=== PATIENT | male | born 1940 | race Hispanic/Latino ===

== ENCOUNTER 2018-02-13 01:08 | Emergency (ER) | payer MEDICARE ==
--- NOTE | 2018-02-13 01:13 | C.PDOC ---
History Of Present Illness medics were called because pt was unresponsive. Found in pea. Started cpr, intubated, received 1 amp epi with ROSC. Lost pulse in the ambulance and after cpr and another amp epi, ROSC. Received pt intubated and with good pulses. No evidence of trauma Time Seen by Provider: 02/13/18 01:12 History Per: EMS Reason For Code Blue: Full Arrest Circumstances: Brought To ED By EMS Arrest Witnessed By: No One CPR Initiated Prior To MD Arrival?: Yes Down-Time Before ACLS: Unknown (last seen at baseline around midnight) Treatment Initiated Prior To MD Arrival: Yes: CPR, Intubation, IVF, ACLS Medication Initiation, IV Access Medications Given Prior To MD Arrival: Yes: Epinephrine - Initial Findings Mentation: Unresponsive Respirations: None (Assisted) Pulse: None Rhythm: PEA Past Medical History Reviewed: Historical Data, Nursing Documentation, Vital Signs Vital Signs: Last Vital Signs Temp 96.3 F L 02/13/18 01:14 Pulse 0 L 02/13/18 03:04 Resp 18 02/13/18 02:52 BP 0/0 L 02/13/18 03:04 Pulse Ox 100 02/13/18 02:52 - Medical History PMH: Anemia, CHF, HTN, Chronic Kidney Disease Denies: Alzheimer's Disease, Anxiety, Arthritis, Asthma, Bipolar Disorder, Bronchitis, Cardia Arrhythmia, COPD, Crohn's Disease, Dementia, Depression, Diverticulitis, Emphysema, Fibromyalgia, Fractures, Gastrointestinal Ulcer, Gall Bladder Disease, HIV, Hypercholesterolemia, Hyperthyroidism, Hypothyroidism , Kidney Stones, Migraine, Mitral Valve Prolapse, Osteoporosis, Pancreatitis, Paranoia, Parkinson's Disease, Peripheral Edema, Pneumonia, Post Traumatic Stress Disorder, Schizophrenia, Seizures, Sickle Cell Disease, Sexually Transmitted Disease, Sleep Apnea, TIA Surgical History: Denies: Appendectomy, Cholecystectomy, Coronary Stent, Pacemaker - [facility] Procedures ANESTH INJECT-SPIN CANAL (12/12/03) DETACHMENT AT RIGHT UPPER LEG, LOW, OPEN APPROACH (10/22/17) DILATION OF R EXT ILIAC ART WITH INTRALUM DEV, PERC APPROACH (07/07/17) DILATION OF R FEM ART WITH DRUG-ELUT INTRA, PERC APPROACH (07/07/17) EXCISION OF RIGHT FOOT SKIN, EXTERNAL APPROACH (08/25/17) EXCISION OF SIGMOID COLON, ENDO, DIAGN (09/13/17) EXCISION OF STOMACH, ENDO, DIAGN (09/13/17) FLUOROSCOPY OF AORTA, BI LE ART USING OTH CONTRAST (07/07/17) FLUOROSCOPY OF RIGHT RENAL ARTERY USING OTHER CONTRAST (07/07/17) INJECT STEROID (12/12/03) OPEN REDUC-INT FIX FEMUR (09/06/12) OTHER LOCAL DESTRUC SKIN (06/10/97) SPINAL CANAL INJECT NEC (12/12/03) TRANSFUSE NONAUT RED BLOOD CELLS IN PERIPH VEIN, PERC (10/22/17) Family History: States: No Known Family Hx - Social History Hx Tobacco Use: Yes Hx Alcohol Use: No Hx Substance Use: No Review Of Systems Review Of Systems: ROS cannot be obtained secondary to pt's inabilty to answer questions. Physical Exam - Physical Exam Appears: In Acute Distress Skin: Pale Head: Normacephalic Eye(s): bilateral: Other (fixed) Oral Mucosa: Dry Lips: Other (dry) Throat: Other (intubated) Neck: Supple Chest: Symmetrical, Other (skin tear sternum) Cardiovascular: Rhythm Regular Respiratory: No Rales, Rhonchi, No Wheezing Gastrointestinal/Abdominal: Soft, No Tenderness, No Distention Back: Normal Inspection Extremity: Other (right BKA) Extremity: Left: No Pedal Edema Neurological/Psych: Other (unresponsivre, intubated) Gait: Unable To Assess ED Course And Treatment - Laboratory Results Result Diagrams: 02/13/18 01:24 02/13/18 01:24 ECG: Interpreted By Me, Viewed By Me ECG Rhythm: Sinus Rhythm (85), R BBB, ST/T Changes (lat ischmia), Nonspecific Changes (unchanged from 10/22/17) O2 Sat by Pulse Oximetry: 100 Pulse Ox Interpretation: Normal - Radiology CXR: Interpreted by Me, Viewed By Me Progress Note: see code sheet. repeat ekg 2:29 am afib 74 rbbb nsstt changes. spoke with dr diamond accepte the pt to icu. 3am attempted to put a central line in left femoral vein, but pt became asystolic. cpr initiated, 1 amp epi given. Pt pronounced at 3:12 AM Disposition Counseled Patient/Family Regarding: Studies Performed, Diagnosis - Disposition Referrals: Silvia Griggs MD [Primary Care Provider] - Disposition: WITH WITHOUT AUTOPSY Disposition Time: 01:13 Condition: - Clinical Impression Clinical Impression: Cardiac arrest Critical Care Time - Critical Care Note Total Time (in mins): 30 Documented critical care: time excludes all time spent performing seperately billable procedures.
[2018-02-13 01:14] VITALS: BMI 17.8
[2018-02-13 01:21] VITALS: TEMP 96.3
[2018-02-13 01:32] LABS: BASO # 0.1 K/uL (0.0-0.2); BASO % 1.2 % (0.0-2.0); EOS # 0.2 K/uL (0.0-0.7); EOS % 1.6 % (0.0-4.0); HEMOGLOBIN 7.2 g/dL (12.0-18.0); LYMPH # 4.7 K/uL (1.0-4.3); LYMPH % 47.2 % (20.0-40.0); MEAN CELL VOLUME 105.9 fL (80.0-94.0); MEAN CORPUSCULAR HEMOGLOBIN 31.6 pg (27.0-31.0); MEAN CORPUSCULAR HGB CONC 29.8 g/dL (33.0-37.0); MEAN PLATELET VOLUME 8.6 fL (7.2-11.7); MONO # 0.4 K/uL (0.0-0.8); MONO % 4.2 % (0.0-10.0); NEUT # 4.5 K/uL (1.8-7.0); NEUT % 45.8 % (50.0-75.0); NRBC % 0.5 % (0.0-2.0); RBC 2.28 Mil/uL (4.40-5.90); RED CELL DISTRIBUTION WIDTH 18.7 % (11.5-14.5); WHITE BLOOD COUNT 9.8 K/uL (4.8-10.8)
[2018-02-13 01:34] LABS: URINE BACTERIA OCC (<OCC); URINE BILIRUBIN NEGATIVE (NEGATIVE); URINE BLOOD 1+ (NEGATIVE); URINE CLARITY Hazy (Clear); URINE COLOR Yellow (YELLOW); URINE GLUCOSE (UA) NORMAL (Normal); URINE LEUKOCYTE ESTERASE 3+ Leu/uL (Negative); URINE PROTEIN 2+ mg/dL (NEGATIVE); URINE UROBILINOGEN NORMAL mg/dL (0.2-1.0); WBC CLUMPS FEW /hpf
[2018-02-13] MEDS ORDERED: Calcium Chloride 1000 mg/10 ml Syringe ONE (01:35)
[2018-02-13] MEDS ORDERED: Sodium Bicarbonate (8.4%) 50 Meq Syringe ONE (01:35)
[2018-02-13 01:36] LABS: INR 1.2; PROTHROMBIN TIME 12.7 SECONDS (9.7-12.2)
[2018-02-13 01:40] VITALS: RESP 18
[2018-02-13 01:47] LABS: ARTERIAL BLOOD GAS O2 SAT 98.5 % (95-98); ARTERIAL BLOOD GAS PCO2 32 mm/Hg (35-45); ARTERIAL BLOOD GAS PH 6.91 (7.35-7.45); ARTERIAL BLOOD GAS PO2 380 mm/Hg (80-100); ARTERIAL BLOOD GAS TCO2 7.4 mmol/L (22-28)
[2018-02-13] MEDS ORDERED: DOBUTamine 500mg/250ml D5W 500 MG/250 ML BAG IV SCH (01:55)
[2018-02-13 02:18] LABS: ALB/GLOB RATIO 0.8 (1.0-2.1); ALBUMIN 2.2 g/dL (3.5-5.0); CALCIUM 7.8 mg/dl (8.6-10.4)
[2018-02-13 02:26] LABS: TROPONIN I 0.088 ng/mL (0.00-0.120)
[2018-02-13] MEDS ORDERED: Piperacillin/Tazobact 3.375 gm 100 ML IVPB STA (02:34)
[2018-02-13] MEDS ORDERED: Vancomycin 1 GM 1 GM/250 ML BAG IVPB ONE (02:37)
[2018-02-13] MEDS ORDERED: Vancomycin 1 GM 1 GM/250 ML BAG IVPB SCH (02:45)
[2018-02-13 02:53] VITALS: O2SAT 100
[2018-02-13] MEDS ORDERED: Piperacillin/Tazobact 3.375 gm 100 ML IVPB ONE (02:57)
[2018-02-13 03:06] VITALS: BP 0/0; PULSE 0
--- NOTE | 2018-02-13 09:37 | RAD ---
Chest x-ray single frontal view History: Chest pain. Comparison: 02/13/2018 Findings: Lines and tubes in stable position. Moderate venous congestion. Biapical pleural thickening with upper lobe granulomatous changes. Patchy airspace consolidative changes in the mid to lower lung zones bilaterally. Small bilateral pleural effusions. Tortuous ectatic aorta. Cardiomegaly. Degenerative changes in the spine and shoulders. Impression: Lines and tubes in stable position. Moderate venous congestion. Biapical pleural thickening with upper lobe granulomatous changes. Patchy airspace consolidative changes in the mid to lower lung zones bilaterally. Small bilateral pleural effusions. Tortuous ectatic aorta. Cardiomegaly.
--- NOTE | 2018-02-14 11:45 | CARD ---
APPROVED REPORT Date of service: 02/13/2018 EKG Measurement Heart [id number] [id number] <Conclusion> Sinus rhythm with 1st degree AV block Right bundle branch block Anterior infarct, age undetermined T wave abnormality, consider lateral ischemia Abnormal ECG
== END 2018-02-13 06:25 ==
LOC: SUPCPDRO 01:08 → C.ER 01:08
DX: I46.9 Cardiac arrest, cause unspecified (principal)
CPT/HCPCS: 31500; 31720; 36600; 71045; 80053; 81001; 82803; 82948; 83690; 83880; 84484; 85025; 85610; 85730; 86850; 86900; 86920; 87040; 92950; 93005; 99291; J0171; J1250; J7060